=== PATIENT | male | born 1990 | race Caucasian/White ===

== ENCOUNTER 2018-02-02 16:51 | Emergency (ER) | payer OTHER ==
--- NOTE | 2018-02-02 17:34 | RAD REPORT ---
EXAM DESCRIPTION: CT - CTHCSPWOC - 02/02/2018 5:19 pm CLINICAL HISTORY: Concussion, head and neck injury COMPARISON: None. TECHNIQUE: Axial 5 mm thick images of the head were obtained. Axial 2 mm thick images of the cervic al spine were obtained with sagittal and coronal reconstruction images generated and reviewed. All CT scans are performed using dose optimization technique as appropriate and may include automated exposure control or mA/KV adjustment according to patient size. FINDINGS: No epidural, subdural or subarachnoid hemorrhage seen. No cortical contusion or axonal shear injury. Patient has a small right parietal scalp hematoma. Ventricles are normal. No extra-axial fluid collec tions. Mastoid air cells are clear. Near complete opacification of the ethmoid air cells present. The re is sphenoid mucosal thickening and complete opacification of the left frontal sinus. Mucosal thick ening is present within partially imaged maxillary sinuses. No globe or orbit abnormality seen. Cervical body height and alignment are normal. No disk space narrowing. No fracture or acute bony abn ormality. No paraspinal mass or hematoma. IMPRESSION: No hemorrhage, edema or acute intracranial finding. Small right parietal scalp hematoma is present with intact underlying bone. Negative CT cervical spine examination for acute or significant finding.
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
== END 2018-02-02 17:59 | disposition home or self-care (01) ==
LOC: ER 16:51
DX: S00.03XA Contusion of scalp, initial encounter (principal); Y04.0XXA Assault by unarmed brawl or fight, initial encounter; Y93.89 Activity, other specified; Y92.149 Unspecified place in prison as the place of occurrence of the external cause; J45.909 Unspecified asthma, uncomplicated
CPT/HCPCS: 70450; 72125; 99284